=== PATIENT | female | born 1990 | race Caucasian/White ===

== ENCOUNTER 2024-07-15 23:47 | Emergency (ER) | payer OTHER ==
[~2024-07-15] VITALS: Ht 167.6 cm; Wt 73.0 kg
[2024-07-15 23:49] VITALS: BP 128/87; PULSE 74; RESP 18; TEMP 99; O2SAT 97
[2024-07-16] MEDS ORDERED: ACETAMINOPHEN 325MG TABLET PO ONE
== END 2024-07-16 00:26 | disposition home or self-care (01) ==
LOC: ER 23:47
DX: M25.571 Pain in right ankle and joints of right foot (principal); M25.572 Pain in left ankle and joints of left foot; Z59.00 Homelessness unspecified
CPT/HCPCS: 99283